=== PATIENT | female | born 1995 | race African-American/Black ===

== ENCOUNTER 2019-02-23 23:56 | Emergency (ER) | payer SELFPAY ==
[~2019-02-23] VITALS: Ht 177.8 cm; Wt 71.7 kg
[2019-02-24 00:01] VITALS: BP 104/68
== END 2019-02-24 01:07 | disposition home or self-care (01) ==
LOC: ER 23:56
DX: K52.9 Noninfective gastroenteritis and colitis, unspecified (principal); J30.9 Allergic rhinitis, unspecified
CPT/HCPCS: 84703-TC; 87400